=== PATIENT | female | born 1980 | race American Indian/Alaskan Native ===

== ENCOUNTER 2024-03-03 10:16 | Inpatient (IN) | payer MEDICAID, OTHER ==
[~2024-03-03] VITALS: Ht 172.7 cm; Wt 104.5 kg
[2024-03-03] MEDS ORDERED: MORPHINE SULFATE 4 MG/ML SYR/VIAL IV ONE (10:30)
[2024-03-03 11:08] LABS: Basophils # (auto) 0.1 10 ^3/uL (0-0.2); Basophils % (auto) 0.5 % (0.0-2.0); Eosinophils # (auto) 0 10 ^3/uL (0-0.8); Eosinophils % (auto) 0.3 % (0.0-7.0); Hematocrit 43.1 % (36.0-46.0); Hemoglobin 14.7 g/dL (12.2-16.2); Lymphocytes # (auto) 1.1 10 ^3/uL (0.4-5.4); Lymphocytes % (auto) 9.5 % (10.0-50.0); Mean Corpuscular Hgb Conc. 34.2 g/dL (32.0-36.0); Mean Corpuscular Volume 93.4 fL (80.0-100.0); Monocytes # (auto) 0.5 10 ^3/uL (0-1.3); Monocytes % (auto) 4.3 % (0.0-12.0); Neutrophils # (auto) 9.7 10 ^3/uL (1.6-8.6); Neutrophils % (auto) 85.4 % (37.0-80.0); Nucleated Red Blood Cells % 0.2 %; Platelet Count (auto) 353 10^3/uL (140-450); Red Blood Cells 4.61 10^6/uL (4.0-5.20); Red Cell Distribution Width 12.4 % (11.8-14.3); White Blood Cell 11.3 10^3/uL (4.4-10.8)
[2024-03-03 11:26] LABS: Alanine Aminotransferase 23 U/L (7-40); Albumin 4.7 g/dL (3.2-4.8); Alkaline Phosphatase 53 U/L (46-116); Anion Gap 9 (5-15); Aspartate Aminotransferase 15 U/L (13-40); BUN/Creatinine Ratio 9.3 (10.0-20.0); Bilirubin, Total 0.5 mg/dL (0.2-1.0); Blood Urea Nitrogen 9 mg/dL (9-23); Calcium 9.8 mg/dL (8.7-10.4); Carbon Dioxide 20 mmol/L (20-31); Chloride 108 mmol/L (98-107); Glucose 142 mg/dL (74-106); Lipase 32 U/L (12-53); Potassium 3.6 mmol/L (3.5-5.1); Sodium 137 mmol/L (136-145); Total Protein 7.5 g/dL (5.7-8.2)
[2024-03-03] MEDS: PROCHLORPERAZINE EDISYLATE 5 MG/ML 2ML VIAL IV ONE (11:33)
[2024-03-03] MEDS: SODIUM CHLORIDE 0.9% 1,000 ML IV ONE (11:33)
[2024-03-03] MEDS: PANTOPRAZOLE 40 MG/10 ML VIAL INJ IV ONE (11:33)
[2024-03-03] MEDS: MORPHINE SULFATE 4 MG/ML SYR/VIAL IV ONE (12:00)
[2024-03-03] MEDS: KETOROLAC TROMETH 30 MG/ML 1ML VIAL IV ONE (13:19)
[2024-03-03] MEDS: ONDANSETRON HCL 4 MG/2 ML VIAL IV ONE (16:32)
[2024-03-03 16:33] LABS: Urine Bacteria None Seen /hpf (None Seen)
[2024-03-03] MEDS: IOHEXOL 300 MG/ML 100ML BOTTLE IJ ONE (16:39)
[2024-03-03 16:54] LABS: Urine Amorphous Crystal MANY /hpf (None Seen); Urine Blood Negative /uL (Negative); Urine Clarity Ex.Turbid (Clear); Urine Color Brown (Yellow); Urine Mucus FEW (None Seen); Urine Protein, UAD TRACE (Negative); Urine Specific Gravity 1.023 (1.001-1.035); Urine Urobilinogen Normal (Negative); Urine WBC 2 /hpf (0 - 5); Urine pH 5.5 (5.0-9.0)
[2024-03-03 17:11] LABS: Amphetamine Screen, Urine Neg (NEGATIVE); Barbiturate Scree,Urine Neg (NEGATIVE); Benzodiazephine Screen, Urine Neg (NEGATIVE); Cannabinoid Screen, Urine Pos (NEGATIVE); Cocaine Screen, Urine Neg (NEGATIVE); Opiate Scree,Urine Pos (NEGATIVE); Phencyclidine Screen, Urine Neg (NEGATIVE)
[2024-03-03] MEDS: SODIUM CHLORIDE 0.9% 1,000 ML IV SCH (17:21)
[2024-03-03] MEDS: MORPHINE SULFATE INJ 2 MG/ml SYRG IV PRN (17:26)
[2024-03-03] MEDS: ONDANSETRON HCL 4 MG/2 ML VIAL IV PRN (20:20)
[2024-03-03] MEDS: HYDROcodone-ACET 5/325MG TAB PO PRN (20:33)
[2024-03-03 20:51] VITALS: PULSE 69; RESP 12; O2SAT 99
[2024-03-03 21:26] VITALS: BP 141/69; PULSE 64; RESP 18; TEMP 97.9; O2SAT 95
[2024-03-03 21:55] VITALS: BP 141/69; PULSE 64; RESP 18; TEMP 97.9; O2SAT 95
[2024-03-03] MEDS ORDERED: HYDR-4902 PO (21:57)
[2024-03-04] VITALS (7 sets, daily range): BP systolic 111–178; BP diastolic 56–103; PULSE 47–61; RESP 15–18; TEMP 97.7–98.5; O2SAT 96–100
[2024-03-04 07:05] LABS: Basophils # (auto) 0 10 ^3/uL (0-0.2); Basophils % (auto) 0.3 % (0.0-2.0); Eosinophils # (auto) 0 10 ^3/uL (0-0.8); Hematocrit 38.4 % (36.0-46.0); Hemoglobin 13.2 g/dL (12.2-16.2); Lymphocytes # (auto) 0.8 10 ^3/uL (0.4-5.4); Lymphocytes % (auto) 6.3 % (10.0-50.0); Mean Corpuscular Hemoglobin 32.6 pg (28.0-32.0); Mean Corpuscular Hgb Conc. 34.5 g/dL (32.0-36.0); Mean Corpuscular Volume 94.6 fL (80.0-100.0); Monocytes # (auto) 0.6 10 ^3/uL (0-1.3); Monocytes % (auto) 4.3 % (0.0-12.0); Neutrophils # (auto) 11.3 10 ^3/uL (1.6-8.6); Neutrophils % (auto) 89.1 % (37.0-80.0); Platelet Count (auto) 289 10^3/uL (140-450); Red Blood Cells 4.06 10^6/uL (4.0-5.20); Red Cell Distribution Width 12.6 % (11.8-14.3); White Blood Cell 12.7 10^3/uL (4.4-10.8)
[2024-03-04] MEDS: cefTRIAXone 1GM/50ML D5W 50 ML IV ONE (12:20)
[2024-03-04 12:26] LABS: Alanine Aminotransferase 18 U/L (7-40); Alkaline Phosphatase 42 U/L (46-116); Anion Gap 8 (5-15); Aspartate Aminotransferase 9 U/L (13-40); BUN/Creatinine Ratio 16.1 (10.0-20.0); Bilirubin, Total 0.5 mg/dL (0.2-1.0); Blood Urea Nitrogen 14 mg/dL (9-23); Carbon Dioxide 25 mmol/L (20-31); Chloride 110 mmol/L (98-107); Glucose 118 mg/dL (74-106); Potassium 3.7 mmol/L (3.5-5.1); Sodium 143 mmol/L (136-145); Total Protein 6.5 g/dL (5.7-8.2)
[2024-03-04] MEDS ORDERED: ACETAMINOPHEN 325 MG TAB PO PRN (12:30)
[2024-03-04] MEDS: IBUPROFEN 600 MG TAB PO ONE (12:49)
[2024-03-04] MEDS: metroNIDAZOLE 500MG/100ML 100 ML IV SCH (13:38)
[2024-03-05] VITALS: BP 148/92; PULSE 95; RESP 20; O2SAT 96
[2024-03-05 05:00] VITALS: BP 129/77; PULSE 54; RESP 19; TEMP 98.4; O2SAT 100
[2024-03-05 05:04] LABS: Basophils # (auto) 0 10 ^3/uL (0-0.2); Basophils % (auto) 0.2 % (0.0-2.0); Eosinophils # (auto) 0 10 ^3/uL (0-0.8); Eosinophils % (auto) 0.1 % (0.0-7.0); Hematocrit 36.4 % (36.0-46.0); Hemoglobin 12.7 g/dL (12.2-16.2); Lymphocytes # (auto) 1.1 10 ^3/uL (0.4-5.4); Lymphocytes % (auto) 9.7 % (10.0-50.0); Mean Corpuscular Hemoglobin 32.7 pg (28.0-32.0); Mean Corpuscular Hgb Conc. 34.8 g/dL (32.0-36.0); Monocytes # (auto) 0.8 10 ^3/uL (0-1.3); Monocytes % (auto) 6.8 % (0.0-12.0); Neutrophils # (auto) 9.4 10 ^3/uL (1.6-8.6); Neutrophils % (auto) 83.2 % (37.0-80.0); Platelet Count (auto) 262 10^3/uL (140-450); Red Blood Cells 3.88 10^6/uL (4.0-5.20); Red Cell Distribution Width 12.6 % (11.8-14.3); White Blood Cell 11.3 10^3/uL (4.4-10.8)
[2024-03-05 08:44] VITALS: BP 129/82; PULSE 52; RESP 19; TEMP 98.6; O2SAT 98
[2024-03-05] MEDS: cefTRIAXone 1GM/50ML D5W 50 ML IV SCH (10:16)
[2024-03-05 13:00] VITALS: BP 138/86; PULSE 63; RESP 19; TEMP 97.8; O2SAT 96
[2024-03-05 17:00] VITALS: BP 141/87; PULSE 57; RESP 19; TEMP 98.1; O2SAT 100
[2024-03-05 22:00] VITALS: BP 152/88; PULSE 61; RESP 16; TEMP 98.9; O2SAT 96
[2024-03-06 01:00] VITALS: BP 131/72; PULSE 58; RESP 16; TEMP 98.4; O2SAT 95
[2024-03-06 05:00] VITALS: BP 103/62; PULSE 55; RESP 16; TEMP 98.7; O2SAT 91
[2024-03-06 05:30] LABS: Basophils # (auto) 0 10 ^3/uL (0-0.2); Basophils % (auto) 0.4 % (0.0-2.0); Eosinophils # (auto) 0 10 ^3/uL (0-0.8); Hematocrit 36.6 % (36.0-46.0); Hemoglobin 12.6 g/dL (12.2-16.2); Lymphocytes # (auto) 1.2 10 ^3/uL (0.4-5.4); Lymphocytes % (auto) 12.6 % (10.0-50.0); Mean Corpuscular Hemoglobin 32.4 pg (28.0-32.0); Mean Corpuscular Hgb Conc. 34.6 g/dL (32.0-36.0); Mean Corpuscular Volume 93.8 fL (80.0-100.0); Monocytes # (auto) 0.7 10 ^3/uL (0-1.3); Monocytes % (auto) 7.1 % (0.0-12.0); Neutrophils # (auto) 7.3 10 ^3/uL (1.6-8.6); Neutrophils % (auto) 79.9 % (37.0-80.0); Nucleated Red Blood Cells % 0.1 %; Platelet Count (auto) 244 10^3/uL (140-450); Red Cell Distribution Width 12.4 % (11.8-14.3); White Blood Cell 9.2 10^3/uL (4.4-10.8)
[2024-03-06 08:58] VITALS: BP 140/86; PULSE 54; RESP 17; TEMP 98.1; O2SAT 98
[2024-03-06] MEDS ORDERED: CIPR-173 PO (10:35)
[2024-03-06] MEDS ORDERED: HYDR-4072 PO (10:35)
[2024-03-06] MEDS ORDERED: METR-344 PO (10:35)
[2024-03-06] MEDS: HYDROcodone-ACET 10/325MG TAB PO ONE (11:15)
[2024-03-06 13:23] VITALS: BP 157/91; PULSE 65; RESP 17; TEMP 98.2; O2SAT 100
== END 2024-03-06 13:03 | disposition home or self-care (01) | DRG 244 ==
LOC: EDBD 10:16 → ER 10:16 → OVERFLOW 16:26 → WEST WING 21:36
PROVIDERS: ADMIT Registered Nurse; ATTEND Student in an Organized Health Care Education/Training Program
DX: K57.32 Diverticulitis of large intestine without perforation or abscess without bleeding (principal); R16.0 Hepatomegaly, not elsewhere classified; E66.9 Obesity, unspecified; N92.0 Excessive and frequent menstruation with regular cycle; N83.201 Unspecified ovarian cyst, right side; N94.6 Dysmenorrhea, unspecified; Z98.51 Tubal ligation status; Z68.35 Body mass index [BMI] 35.0-35.9, adult
CPT/HCPCS: 36415; 74177; 76705; 80053; 80307; 81001; 81025; 82962; 83690; 85025; G0378; J1885; J2405; J2470; J3490